=== PATIENT | female | born 2000 | race Caucasian/White ===

== ENCOUNTER 2024-08-01 11:22 | Emergency (ER) | payer SELFPAY ==
[~2024-08-01] VITALS: Ht 160 cm; Wt 45.4 kg
[2024-08-01 12:22] LABS: *BILIRUBIN,URIN NEGATIVE (NEGATIVE); *BLOOD, URINE NEGATIVE (NEGATIVE); *CLARITY,URINE CLEAR (CLEAR); *COLOR,URINE YELLOW (YELLOW); *KETONES,URINE NEGATIVE (NEGATIVE); *PROTEIN,URINE NEGATIVE (NEGATIVE); *UROBILINOGEN,URINE 0.2 E.U./dl (NORMAL); LEUKOCYTE ESTERASE ,URINE NEGATIVE (NEGATIVE); NITRITE, URINE NEGATIVE (NEGATIVE); UGLUCOSE NEGATIVE (NEGATIVE)
[2024-08-01 12:28] LABS: *URINE HCG, QUAL NEGATIVE (NEGATIVE)
[2024-08-01] MEDS ORDERED: KETOROLAC TROMETHAMINE 15 MG INJ ONE (12:40)
[2024-08-01] MEDS ORDERED: METOCLOPRAMIDE HCL 10 MG/2 ML VIAL ONE (12:40)
[2024-08-01] MEDS: METOCLOPRAMIDE HCL 10 MG/2 ML VIAL IV ONE (12:41)
[2024-08-01] MEDS: IV NORMAL SALINE 1000 ML BAG IV ONE (12:41)
[2024-08-01] MEDS: KETOROLAC TROMETHAMINE 15 MG INJ IVP ONE (12:41)
[2024-08-01 12:45] LABS: BASOPHILS % (AUTO) 0.3 % (0.0-2.0); EOSINOPHILS % (AUTO) 0.6 % (0.0-7.0); HEMATOCRIT 40.8 % (31.2-41.9); HEMOGLOBIN 13.6 g/dL (10.9-14.3); LYMPHOCYTES # (AUTO) 1.5 K/uL (0.8-4.8); LYMPHOCYTES % (AUTO) 23.5 % (20.5-51.5); MEAN CORPUSCULAR HEMOGLOBIN 31.1 uug (24.7-32.8); MEAN CORPUSCULAR HGB CONC 33 g/dL (32.3-35.6); MEAN CORPUSCULAR VOLUME 93.4 fL (75.5-95.3); MONOCYTES # (AUTO) 0.4 K/uL (0.1-1.30); MONOCYTES % (AUTO) 6.8 % (0.0-11.0); NEUTROPHILS # (AUTO) 4.3 K/uL (1.8-8.9); NEUTROPHILS % (AUTO) 68.8 % (38.5-71.5); PLATELET COUNT (AUTO) 112 K/uL (179-408); RED BLOOD CELL COUNT(AUTO) 4.37 MIL/uL (3.63-4.92); WHITE BLOOD COUNT (AUTO) 6.3 K/uL (3.8-11.8)
[2024-08-01 12:51] LABS: CALCIUM 9.6 mg/dL (8.5-10.1); CARBON DIOXIDE 25 mmol/L (21-32); CHLORIDE 106 mmol/L (98-107); CREATININE 0.6 mg/dL (0.6-1.3); GLUCOSE 99 mg/dL (74-106); POTASSIUM 3.8 mmol/L (3.5-5.1); SODIUM SERUM 145 mmol/L (136-145); UREA NITROGEN, BLOOD 4 mg/dL (7-18)
[2024-08-01 12:53] LABS: DIFFERENTIAL COMMENT 1
[2024-08-01 12:57] LABS: ALANINE AMINOTRANSFERASE 29 U/L (14-59); ALBUMIN 4.6 g/dL (3.4-5.0); ALKALINE PHOSPHATASE 78 U/L (50-136); ASPARTATE AMINOTRANSFERASE 27 U/L (15-37); BILIRUBIN,DIRECT 0.3 mg/dL (0.0-0.2); BILIRUBIN,TOTAL 1.1 mg/dL (0.2-1.0); LIPASE 38 U/L (16-77); TOTAL PROTEIN, SERUM 8.4 g/dL (6.4-8.2)
[2024-08-01 13:09] LABS: PREGNANCY TEST SERUM QUAN < 1 miul/L (0-6)
[2024-08-01] MEDS ORDERED: FAMO40TA7 PO (14:44)
[2024-08-01] MEDS ORDERED: SUCR1ORA4 PO (14:44)
[2024-08-01 15:10] VITALS: BP 143/89; TEMP 97.6; O2SAT 100
== END 2024-08-01 15:10 | disposition home or self-care (01) ==
LOC: ER 11:22
DX: R10.33 Periumbilical pain (principal); R11.0 Nausea; R06.00 Dyspnea, unspecified; R07.9 Chest pain, unspecified; R10.2 Pelvic and perineal pain
CPT/HCPCS: 99285; 74176; 96374; 76705; 71045; 96361; 96375; 80076; 80048; 81003; 84703; 83690; 85025; 85730; 84484; 84702; 36415; 93005; J1885; J2765; J7040; A4606; A4663

== ENCOUNTER 2024-08-24 13:37 | Emergency (ER) | payer SELFPAY ==
[~2024-08-24] VITALS: Ht 160 cm; Wt 45.4 kg
[~2024-08-24 13:37] MED LIST: FAMO40TA7 PO; SUCR1ORA4 PO
[2024-08-24 14:46] LABS: BASOPHILS % (AUTO) 0.6 % (0.0-2.0); EOSINOPHILS # (AUTO) 0.1 K/uL (0.0-0.7); EOSINOPHILS % (AUTO) 1.7 % (0.0-7.0); HEMATOCRIT 38.5 % (31.2-41.9); HEMOGLOBIN 12.9 g/dL (10.9-14.3); LYMPHOCYTES # (AUTO) 1.2 K/uL (0.8-4.8); LYMPHOCYTES % (AUTO) 19.9 % (20.5-51.5); MEAN CORPUSCULAR HEMOGLOBIN 31.2 uug (24.7-32.8); MEAN CORPUSCULAR HGB CONC 34 g/dL (32.3-35.6); MEAN CORPUSCULAR VOLUME 93.2 fL (75.5-95.3); MONOCYTES # (AUTO) 0.5 K/uL (0.1-1.30); NEUTROPHILS # (AUTO) 4.4 K/uL (1.8-8.9); NEUTROPHILS % (AUTO) 69.8 % (38.5-71.5); PLATELET COUNT (AUTO) 112 K/uL (179-408); RED BLOOD CELL COUNT(AUTO) 4.13 MIL/uL (3.63-4.92); RED CELL DISTRIBUTION WIDTH 12.3 % (12.3-17.7); WHITE BLOOD COUNT (AUTO) 6.3 K/uL (3.8-11.8)
[2024-08-24 14:56] LABS: DIFFERENTIAL COMMENT 1
[2024-08-24 15:01] LABS: CARBON DIOXIDE 26 mmol/L (21-32); CHLORIDE 103 mmol/L (98-107); CREATININE 0.5 mg/dL (0.6-1.3); GLUCOSE 86 mg/dL (74-106); POTASSIUM 4.3 mmol/L (3.5-5.1); SODIUM SERUM 140 mmol/L (136-145); UREA NITROGEN, BLOOD 12 mg/dL (7-18)
[2024-08-24 15:07] LABS: ALANINE AMINOTRANSFERASE 32 U/L (14-59); ALKALINE PHOSPHATASE 66 U/L (50-136); ASPARTATE AMINOTRANSFERASE 20 U/L (15-37); BILIRUBIN,DIRECT 0.2 mg/dL (0.0-0.2); BILIRUBIN,TOTAL 0.7 mg/dL (0.2-1.0); TOTAL PROTEIN, SERUM 7.7 g/dL (6.4-8.2)
[2024-08-24 15:09] LABS: *BILIRUBIN,URIN NEGATIVE (NEGATIVE); *BLOOD, URINE NEGATIVE (NEGATIVE); *CLARITY,URINE CLEAR (CLEAR); *COLOR,URINE YELLOW (YELLOW); *KETONES,URINE NEGATIVE (NEGATIVE); *PROTEIN,URINE NEGATIVE (NEGATIVE); *UROBILINOGEN,URINE 0.2 E.U./dl (NORMAL); LEUKOCYTE ESTERASE ,URINE NEGATIVE (NEGATIVE); NITRITE, URINE NEGATIVE (NEGATIVE); UGLUCOSE NEGATIVE (NEGATIVE)
[2024-08-24 15:10] LABS: *URINE HCG, QUAL NEGATIVE (NEGATIVE)
[2024-08-24 15:31] LABS: MAGNESIUM 2.2 mg/dL (1.8-2.4)
[2024-08-24] MEDS ORDERED: CYANOCOBALAMIN 1000 MCG/ML VIAL ONE (16:59)
[2024-08-24] MEDS: CYANOCOBALAMIN 1000 MCG/ML VIAL IM ONE (17:10)
[2024-08-24 17:18] VITALS: BP 136/89; TEMP 98.7; O2SAT 100
== END 2024-08-24 17:19 | disposition home or self-care (01) ==
LOC: ER 13:37
DX: R53.81 Other malaise (principal); R53.83 Other fatigue; D69.6 Thrombocytopenia, unspecified; E53.8 Deficiency of other specified B group vitamins
CPT/HCPCS: 99283; 80076; 80048; 81003; 82607; 84703; 83735; 85025; 36415; 96372; J3420; A4606; A4663